=== PATIENT | female | born 1950 | race Caucasian/White ===

== ENCOUNTER → 2016-10-22 | Outpatient (CLI) | payer BC ==
[~2016-10-22] MED LIST: ASPEC81 PO; BIOTCAP2 PO; CONJ0.3T3 PO; DIPH30CA PO; GLUCTAB7 PO; HYDR-5688 PO; LEVO137T14 PO; LYCOPENE PO; MULTIVITAMIN PO; OMEG120013 PO; OXYSR10 PO
== END | disposition home or self-care (01) ==
LOC: C.LAB1850 13:47
PROVIDERS: ATTEND Family Medicine
DX: E03.9 Hypothyroidism, unspecified (principal)

== ENCOUNTER → 2016-11-18 | Outpatient (CLI) | payer BC ==
[2016-11-19 15:13] LABS: THYROID STIMULATING HORMONE 0.951 uIu/ml (0.300-4.500)
[2016-11-20 16:12] LABS: MICROSOMAL AB 1 IU/ML (<9)
== END | disposition home or self-care (01) ==
LOC: C.LAB1850 16:15
PROVIDERS: ATTEND Family Medicine
DX: E03.9 Hypothyroidism, unspecified (principal)

== ENCOUNTER → 2017-09-29 | Outpatient (CLI) | payer BC ==
[~2017-09-29] MED LIST changes: -ASPEC81 PO; +ASPI-320 PO
[2017-09-29 10:14] LABS: HEMOGLOBIN A1C 5.9 % (4.5-5.6)
[2017-09-29 10:27] LABS: ALT/SGPT 26 U/L (12-78); AST/SGOT 18 U/L (15-37); BLOOD UREA NITROGEN 16 mg/dl (7-18); CALCIUM 9.2 mg/dl (8.5-10.1); CARBON DIOXIDE 25 mmol/L (21-32); CREATININE 0.75 mg/dl (0.60-1.20); GLUCOSE 123 mg/dl (70-99); POTASSIUM 3.9 mmol/L (3.5-5.1); SODIUM 136 mmol/L (136-145)
[2017-09-29 10:38] LABS: ALKALINE PHOSPHATASE 62 U/L (45-117); CHOLESTEROL 191 mg/dl (0-200); LDL CHOLESTEROL CALCULATED 115 mg/dl; TOTAL PROTEIN 7.8 gm/dl (6.4-8.2)
== END | disposition home or self-care (01) ==
LOC: C.LAB1850 09:24
PROVIDERS: ATTEND Family Medicine
DX: E03.9 Hypothyroidism, unspecified (principal); E78.00 Pure hypercholesterolemia, unspecified; I10 Essential (primary) hypertension; R73.03 Prediabetes

== ENCOUNTER → 2017-11-26 | Outpatient (CLI) | payer BC ==
[~2017-11-26] MED LIST changes: +ASPEC81 PO; -ASPI-320 PO
--- NOTE | 2017-11-29 08:08 | MAMMOGRAPHY REPORT ---
BILATERAL DIGITAL SCREENING MAMMOGRAM TOMOSYNTHESIS WITH CAD: 11/26/2017 CLINICAL HISTORY: Routine screening. Patient has no complaints. TECHNIQUE: Breast tomosynthesis in addition to standard 2D mammography was performed. Current study was also evaluated with a Computer Aided Detection (CAD) system. COMPARISON: Comparison is made to exams dated: 07/16/2016 mammogram, 02/11/2015 mammogram, 09/28/2013 ultrasound, 09/28/2013 mammogram, 09/20/2013 mammogram - [facility], and 10/05/2007. BREAST COMPOSITION: There are scattered areas of fibroglandular density in both breasts. FINDINGS: There are nodular asymmetries in the posterior right breast along the posterior nipple line on the CC view and in the lateral, middle one third of the right breast, that are stable comparing b ack to the 09/20/2013 mammograms, and with at least 4 years of stability are considered benign. Ther e are scattered benign-appearing microcalcifications bilaterally. No suspicious mass, architectural distortion or cluster of suspicious microcalcifications is seen. IMPRESSION: ACR BI-RADS CATEGORY 1: NEGATIVE There is no mammographic evidence of malignancy. A 1 year screening mammogram is recommended. The pa tient will receive written notification of the results. Approximately 10% of breast cancers are not detected with mammography. A negative mammographic report should not delay biopsy if a clinically suggestive mass is present. Marlene Joyce M.D. ay/:11/26/2017 16:13:33 Livestock Slaughterer: Radha Lynn, [facility] letter sent: Normal 1/2 BI-RADS Code: ACR BI-RADS Category 1: Negative
== END | disposition home or self-care (01) ==
LOC: C.MAMM 14:07
PROVIDERS: ATTEND Family Medicine
DX: Z12.31 Encounter for screening mammogram for malignant neoplasm of breast (principal)

== ENCOUNTER → 2018-04-23 | Outpatient (CLI) | payer BC ==
[~2018-04-23] MED LIST changes: -ASPEC81 PO; +ASPI-320 PO
== END | disposition home or self-care (01) ==
LOC: C.LAB1850 09:21
PROVIDERS: ATTEND Family Medicine
DX: R53.83 Other fatigue (principal); W57.XXXA Bitten or stung by nonvenomous insect and other nonvenomous arthropods, initial encounter

== ENCOUNTER 2019-08-16 10:49 | Inpatient (IN) ==
--- NOTE | 2019-07-28 16:14 | PAT Medication Instructions ---
Medication Instructions Date of Service July 28, 2019 Home Medications Medication Instructions Recorded metoprolol tartrate 25 mg tablet 25 mg PO QAM #90 tab 05/27/19 nystatin 100,000 unit/gram topical 1 appln TOP BID PRN #30 gm 07/18/19 cream Allergy Sinus Headache (PE) 1 tab PO QAM PRN biotin 5,000 mcg PO QAM [id number] serr [Glucosamine Daily Complex] 1 tab PO QAM multivitamin 1 tab PO QAM metoprolol tartrate 25 mg tablet 25 mg PO QAM meloxicam 15 mg PO QAM diclofenac 1 % topical gel See Rx Instructions TOP QID PRN acetaminophen 500 mg capsule 500 mg PO Q6H PRN nystatin 100,000 unit/gram topical cream 1 appln TOP BID PRN omega 8-klk-mab-fish oil 1,000 mg (120 mg-180 mg) capsule 1 cap PO DAILY betamethasone dipropionate 1 appln TOP BID PRN levothyroxine 100 mcg PO QAM ASK your surgeon for instructions meloxicam 15 mg PO QAM STOP taking 2 weeks before surgery (or as soon as possible if surgery is within 2 weeks) biotin 5,000 mcg PO QAM [id number] serr [Glucosamine Daily Complex] 1 tab PO QAM omega 6-clu-rzv-fish oil 1,000 mg (120 mg-180 mg) capsule 1 cap PO DAILY STOP taking 24 hours before surgery diclofenac 1 % topical gel See Rx Instructions TOP QID PRN nystatin 100,000 unit/gram topical cream 1 appln TOP BID PRN betamethasone dipropionate 1 appln TOP BID PRN DO NOT take the morning of surgery Allergy Sinus Headache (PE) 1 tab PO QAM PRN multivitamin 1 tab PO QAM Take morning of surgery With a small sip of water, OTHERWISE NOTHING TO EAT OR DRINK AFTER MIDNIGHT: metoprolol tartrate 25 mg tablet 25 mg PO QAM acetaminophen 500 mg capsule 500 mg PO Q6H PRN (okay to take up to 4 hours prior to surgery if needed) levothyroxine 100 mcg PO QAM Other Notes If you have any questions please call us at [phone] or [phone] or [phone] or [phone]
--- NOTE | 2019-08-01 10:21 | Anesthesiology Consultation ---
Date of Service August 01, 2019 Assessment & Plan (1) Encounter for pre-operative examination: - Mechanical fall 06/03/19 resulted in hitting head/no loss of consciousness. Small subdural hematoma noted on head CT. + Scalp laceration. Patient transferred to [facility]. Repeat CT stable/GCS 15. Patient advised to not take ASA/fish oil until neurosurgery followup. No surgical intervention needed. Laceration repaired with 1 stable. - PCP: 07/18/19: "Will await PAT testing results before final clearance is given. Patient will also need clearance from neurosurgery due to recent subdural hematoma." - Awaiting review preop testing (labs, EKG, CXR). - Awaiting final PCP "clearance." - Awaiting neurosurgery preop evaluation scheduled 08/02 ([facility] neurosurgery). Chart Review Chart Review: Patient seen in Pre Admission Testing Teaching & Discussion Pre-Anesthesia Teaching/Discussion Notes: Instructed NPO after midnight before surgery,except medications with 15 cc of water. Medication instructions provided according to the PAT guidelines. History Surgery Operation Date: 08/16/19 14:55 Proposed Procedures p Left Total Hip Arthroplasty - Nader Mendoza MD Height/Weight Height: 5 ft 6 in Weight: 91.9 kg Allergies Allergy/AdvReac Type Severity Reaction Status Date / Time Penicillins Allergy Mild hives Verified 07/31/19 15:14 Sulfa (Sulfonamide Allergy Mild hives Verified 07/31/19 15:14 Antibiotics) Medications Home Medications Medication Instructions Recorded Confirmed Last Taken Allergy Sinus Headache (PE) 1 tab PO QAM PRN 06/24/18 07/31/19 Unknown biotin 5,000 mcg PO QAM 06/24/18 07/31/19 06/01/19 krfsosxjwjw-S8-Ofbjejydm serr 1 tab PO QAM 06/24/18 07/31/19 06/01/19 [Glucosamine Daily Complex] multivitamin 1 tab PO QAM 06/24/18 07/31/19 06/01/19 metoprolol tartrate 25 mg tablet 25 mg PO QAM #90 tab 05/27/19 07/31/19 06/01/19 meloxicam 15 mg PO QAM 06/02/19 07/31/19 06/01/19 diclofenac 1 % topical gel See Rx Instructions TOP QID PRN 07/16/19 07/31/19 Unknown acetaminophen 500 mg capsule 500 mg PO Q6H PRN 07/18/19 07/31/19 Unknown nystatin 100,000 unit/gram topical 1 appln TOP BID PRN #30 gm 07/18/19 07/31/19 Unknown cream omega 1-enf-bqt-fish oil 1,000 mg 1 cap PO DAILY 07/18/19 07/31/19 Unknown (120 mg-180 mg) capsule levothyroxine 100 mcg PO QAM 07/27/19 07/31/19 Unknown betamethasone dipropionate 0.05 % 1 appln TOP BID #45 gm 07/31/19 07/31/19 Unknown topical cream tacrolimus 0.03 % topical ointment 1 appln TOP BID #60 gm 07/31/19 07/31/19 Unknown Past Medical History Medical History Prediabetes per records Hypertension Hypothyroidism Obesity Osteoarthritis Subdural hematoma 06/03/19 s/p mechanical fall- no surgical intervention needed/neurosurgery followup 08/02 Exercise / Class Metabolic Activity II 4-5 Yardwork/Stairs/Walk up hill (one flight of stairs (no chest pain/no SOB)) Past Surgical History Surgical History H/O arthroscopy of left knee H/O arthroscopy of right knee H/O bilateral cataract extraction History of appendectomy History of bilateral tubal ligation History of carpal tunnel surgery of left wrist History of carpal tunnel surgery of right wrist History of cholecystectomy History of colonoscopy History of dilatation and curettage History of surgery RIGHT CLAVICLE FX SX X2 History of tooth extraction WISDOM TEETH History of total right knee replacement Status post left foot surgery Status post right foot surgery Past Anesthesia History No Hx of Anesthesia Complications and No Family Hx of Anesthesia Complications History of PONV No Hx of PONV and No Hx of Motion Sickness Social History Smoking Status: Former smoker tobacco type: cigarettes Do You Dip or Chew Tobacco: No Smoking End Date: Quit 1979 Hx Alcohol Use: Yes Alcohol type: beer, wine and hard liquor alcohol intake frequency: a few times a month Hx Substance Use: No substance use type: does not use Review of Systems Patient denies chest pain, shortness of breath, dyspnea on exertion, reflux, cough, wheezing, palpitations. Physical Exam Vital Signs VITALS BP 166/87 P 53 (asymptomatic/on beta jo) TEMP 98.1 SP02 97%RA RESP 16 PHYSICAL Full neck and c-spine range of motion. Full TMJ range of motion. TMD 3 finger breaths Mallampati Score 3 Dentition: intact, crown on side Lungs: clear throughout to auscultation Cardiac: regular rate and rhythm, no murmurs noted Spine: normal Carotid arteries: negative bruit Extremities: no edema Testing Other Testing Head CT: 06/03/19: Small acute subdural hematoma about the falx cerebri measures up to 3 mm. No midline shift, or hydrocephalus. Mild age-related involutional changes with suggestion of mild chronic microvascular ischemic disease.
[2019-08-01 11:17] LABS: Basophils # (auto) 0.04 K/uL (0-0.2); Basophils % (auto) 0.7 %; Eosinophils # (auto) 0.15 K/uL (0-0.5); Eosinophils % (auto) 2.8 %; Hematocrit (blood only) 39.2 % (37-47); Hemoglobin 13.1 g/dL (12.0-16.0); Lymphocytes # (auto) 1.64 K/uL (1.2-3.4); Lymphocytes % (auto) 30.6 %; Mean Corpuscular Hemoglobin 30.4 pg (25-34); Mean Corpuscular Hgb Conc 33.4 g/dL (32-36); Monocytes # (auto) 0.44 K/uL (0.11-0.59); Monocytes % (auto) 8.2 %; Neutrophils # (auto) 3.09 K/uL (1.4-6.5); Neutrophils % (auto) 57.7 %; Platelet Count 235 K/uL (130-400); RDW Coefficient of Variation 13.1 % (11.5-14.5); RDW Standard Deviation 43.9 fL (36.4-46.3); Red Blood Count 4.31 M/uL (4.2-5.4); White Blood Count 5.36 K/uL (4.8-10.8)
[2019-08-01 11:21] LABS: Appearance Urine Clear (Clear); Bacteria Urine Automated Negative (Negative); Bilirubin Urine Negative (Negative); Blood Urine Negative (Negative); Cast Urine Automated 0 /lpf (0-5); Color Urine Dark Yellow; Glucose Urine UA Negative (Negative); Ketones Urine Negative (Negative); Leukocyte Esterase Urine Trace (Negative); Nitrite Urine Negative (Negative); Protein Urine Negative (Negative); RBC Urine Automated 0-4 /hpf (0-4); Specific Gravity Urine 1.022 (1.000-1.030); Urobilinogen Urine Negative (Negative); pH Urine 5.5 (4.5-7.5)
[2019-08-01 11:23] LABS: Estimated Average Glucose 128 mg/dl; Hemoglobin A1C 6.1 % (4.5-5.6)
--- NOTE | 2019-08-01 11:28 | XRay Report ---
XR chest Pre-admission PA/Lat CLINICAL HISTORY: pat preoperative evaluation COMPARISON STUDY: 10/23/2015 FINDINGS: The bones soft tissues and hemidiaphragms are normal. The cardiomediastinal silhouette is n ormal. The lungs are clear. The pulmonary vasculature is normal. IMPRESSION: Negative chest. The above report was generated using voice recognition software. It may contain grammatical, syntax or spelling errors. Electronically signed by: Gorge Martinez M.D. 08/01/2019 11:27 AM
[2019-08-01 12:00] LABS: Partial Thromboplastin Ratio 0.8; Partial Thromboplastin Time 22.9 Seconds (21.0-31.0); Prothrombin Time 10.4 Seconds (9.0-12.0)
[2019-08-01 13:51] LABS: Albumin Level 4.2 gm/dl (3.4-5.0); BUN Creatinine Ratio 20.7 (10-20); Calcium 9.6 mg/dl (8.5-10.1); Creatinine Clr Calc Pharmacy 74.6 ml/min; Est GFR (African American) 87.3; Est GFR (Non-African American) 75.3; Potassium 4.6 mmol/L (3.5-5.1)
--- NOTE | 2019-08-15 20:32 | History and Physical Report ---
DATE OF ADMISSION: 08/16/2019 CHIEF COMPLAINT: Chronic left hip pain. HISTORY OF PRESENT ILLNESS: This is a 69-year-old female patient of Dr. Mendoza'alison complaining of chronic left hip pain, longstanding, now progressively getting worse. The patient has been diagnosed with end-stage osteoarthritis per clinical and radiographic exams. The patient has failed conservative treatment including anti-inflammatories, home exercise program and the use of a cane. The patient has increased pain with weightbearing activities and her pain does interfere with her activities of daily living. PAST MEDICAL HISTORY: Hypertension, hypothyroidism, rheumatoid arthritis, osteoarthritis and obesity. SOCIAL HISTORY: Nonsmoker and occasional drinker. REVIEW OF SYSTEMS: Chronic left hip pain. Otherwise, denies any shortness of breath, chest pain, nausea, vomiting or any other joint complaints. FAMILY HISTORY: Noncontributory. MEDICATIONS: 1. Levothyroxine 100 mcg daily. 2. Metoprolol 25 mg daily. 3. Multivitamins daily. 4. Equate 25 mg as needed. 5. Biotin 5000 mcg daily. 6. Glucosamine chondroitin daily. 7. Fish oil daily. 8. Voltaren 1% topical use as needed. 9. Nystatin cream 100,000 units as needed to affected area. 10. Betameth dip 0.05% two times daily to affected area. PAST SURGICAL HISTORY: Oral surgery, appendectomy, tubal ligation, left knee, left carpal tunnel, cholecystectomy, right clavicle, foot surgery, right knee arthroscopy and cataract surgery. ALLERGIES: PENICILLIN AND SULFA. PHYSICAL EXAMINATION: GENERAL: Well-developed, well-nourished, 69-year-old female, in no acute distress. She is alert and oriented x3 and pleasant. HEENT: Normocephalic and atraumatic. Extraocular motions are intact. Pupils are equal and reactive to light. HEART: Regular rate and rhythm. No murmurs. LUNGS: Clear. ABDOMEN: Soft and nontender. Bowel sounds present. EXTREMITIES: Left hip reveals pain with internal and external rotation passively. She does have a limp. She has no flexion contracture. She has 5/5 strength with pain. NEUROLOGIC: Neurovascularly, she is intact in her left lower extremity. DIAGNOSES: Left hip end-stage osteoarthritis, hypertension, hypothyroidism, rheumatoid arthritis and obesity. PLAN: The patient was advised of her diagnoses. Indications, risks, benefits and postoperative course have all been reviewed. The patient wished to proceed with a left total hip arthroplasty. Necessary consent forms, preoperative testing and clearances will be obtained.
[~2019-08-16 10:49] MED LIST changes: +ACETAMINOPHEN 500 MG TAB PO SCH; -ASPI-320 PO; -BIOTCAP2 PO; +BUPIVACAINE 0.5 % 5 MG/1 ML PF 10ML VIAL ONE; -CONJ0.3T3 PO; -DIPH30CA PO; +FAMOTIDINE 20 MG TAB PO SCH; +GABAPENTIN 300 MG CAP PO SCH; -GLUCTAB7 PO; -HYDR-5688 PO; -LEVO137T14 PO; +LR 500ML BOLUS, THEN 15ML/HR IV SCH; -LYCOPENE PO; -MULTIVITAMIN PO; -OMEG120013 PO; -OXYSR10 PO; +ROPIVACAINE 0.5% HCL/PF 150 MG, BUPIVACAINE 0.5% MPF 30 ML, EPINEPHrine 30MG/30ML (OR U... INSTIL SCH; +TRANEXAMIC ACID 1,000 MG **IV Intra-op IV SCH; +TRANEXAMIC ACID 1,000 MG **IV Pre-op IV SCH; +VANCOMYCIN HCL 1,500 MG in SODIUM CHLORIDE 0.9% 500 ML IV SCH; +dexAMETHasone 4 MG TAB PO SCH
--- NOTE | 2019-08-16 11:14 | History & Physical Bridge Note ---
Date of Service August 16, 2019 History & Physical Bridge Note I have examined the patient, reviewed the History & Physical and in the interval since the performance of the History & Physical I have noted the following changes of clinical significance: no changes noted
[2019-08-16] MEDS ORDERED: LIDOCAINE HCL 2% 2 ML VIAL/AMP(20MG/ML) INFIL ONE (11:15)
[2019-08-16] MEDS ORDERED: MIDAZOLAM HCL 1 MG/ML 2ML VIAL ONE ×2 (11:15→14:39)
[2019-08-16] MEDS ORDERED: PROPOFOL IV EMULSION 10 MG/ML 20 ML VIAL IV ONE ×3 (11:15→15:50)
[2019-08-16] MEDS ORDERED: fentaNYL citrate 100 MCG/2 ML VIAL ONE ×2 (11:16→16:28)
[2019-08-16] MEDS ORDERED: BACITRACIN INJ 50,000 UNIT VIAL ONE (12:54)
[2019-08-16] MEDS ORDERED: ORTHO JOINT ANESTHETIC ONE (12:54)
[2019-08-16] MEDS ORDERED: ePHEDrine sulfate 50 MG/ML SYR ONE (14:31)
--- NOTE | 2019-08-16 15:57 | Post Operative Brief Note ---
Immediate Post Op Note v1 Date of Surgery August 16, 2019 Pre & Post Diagnosis Operation Date: 08/16/19 13:50 Pre-Op Diagnosis: LEFT HIP OSTEOARTHRITIS Post-Op Diagnosis: LEFT HIP OSTEOARTHRITIS I identified the patient and participated in the time-out.: Yes Procedure Operation Date: 08/16/19 13:50 Actual Procedures p Left Total Hip Arthroplasty, Uncemented(Left) - Nader Mendoza MD Surgeon Nader Mendoza MD [employer] [place] Rikki MCCANN Estimated Blood Loss 175 Findings Consistent with Post-Op Diagnosis Specimens Femoral head Drains Hemovac Drain Anesthesia Type Spinal MAC Complications none Disposition Accompanied Patient To Recovery: No Disposition: Recovery Room Overlapping Procedure I was immediately available: during the entire case.
--- NOTE | 2019-08-16 16:24 | Operative Report ---
Post Operative Report Pre & Post Diagnosis Operation Date: 08/16/19 13:50 Pre-Op Diagnosis: LEFT HIP OSTEOARTHRITIS Post-Op Diagnosis: LEFT HIP OSTEOARTHRITIS I identified the patient and participated in the time-out.: Yes Procedure Operation Date: 08/16/19 13:50 Actual Procedures p Left Total Hip Arthroplasty, Uncemented(Left) - Nader Mendoza MD Surgeon Nader Mendoza MD [employer] Rikki MCCANN Estimated Blood Loss 175 Findings Consistent with Post-Op Diagnosis Specimens Femoral head Drains 2 Hemovac Anesthesia Type Spinal MAC Complications none Disposition Accompanied Patient To Recovery: No Disposition: Recovery Room Indications 69-year-old female with chronic progressive osteoarthritis in her left hip. Radiographs demonstrate joint space narrowing not quite [id number]-[id number] but has a protrusio type arthritic pattern with the femoral neck and acetabular osteophytes causing impingement. She has failed conservative management Description of Procedure Patient taken to the operating room and anesthetized under spinal anesthesia and sedation. Patient was placed supine on the operating table. Exam of the involved extremity demonstrated flexion to 115 degrees but no internal rotation and abduction limited to about 40degrees. There was moderate obesity but mostly abdominal.The patient was placed on a sacral pad and the involved leg was placed on a foot bump to flex knee 90 and hip 60. A Resendez-type approach was performed to the hip. A longitudinal lateral incision was made over the hip. The skin was incised sharply. The fat was divided down to the fascia. Subcutaneous bleeders are cauterized. Trochanteric bursa was resected. A split was made in the gluteus medius muscle between the anterior 40% and posterior 60%. The minimus was divided longitudinally reflected off the underlying capsule. The capsule was incised down to the hip joint. The capsule was very thickened and the hip was stiff consistent with some chronic capsulitis. An incision was made through the gluteus medius leaving a cuff of tendon for repair on the greater trochanter. The vastus lateralis was split longitudinally for about 3 cm. A muscular capsular flap was elevated off the hip. The hip was dislocated with use of bone hook and with flexion and external rotation of the hip. The femoral neck cut was made approximately 15 mm proximal to the lesser trochanter in neutral anteversion. Head and neck fragment were removed. The femoral head demonstrated grade 3 wear globally with articular thinning with large femoral neck osteophytes. A self-retaining superior tractor was impacted into the ilium, a blunt Tatyana retractor was placed anteriorly a double angled inferior retractor was placed on the ischium. The acetabulum demonstrated medial acetabular wear grade 4 with acetabular osteophytes superior anterior superior and inferior medial all contributing to impingement. The acetabular labrum was resected all osteophytes were resected.The soft tissue in the acetabular fossa was resected. An anterior capsular release was performed. Some the capsule was resected for exposure. The first reamer was used to medialize reaming to the inner table which was minimal amount due to already a protrusio type arthritic pattern and then sequential reamers for the acetabulum were used in 2 mm increments up to a size 52. Because of the rimming osteophytes a lightly reamed to 53 to allow full seating of the acetabular component.. I used the Betterfly total hip arthroplasty system using a PSL type cup. Trial reduction demonstrated a 52 millimeter cup was the appropriate size and fit. The placement of the final implant was performed after irrigating the acetabulum with antibiotic solution with pulsatile lavage. The position of the cup was approximately 15 anteversion 45 abduction. Good fixation was performed. Two 6.5 mm cancellus screws were placed in the posterior superior quadrant for further fixation through the cup. The acetabular liner was impacted into position. The Trident X3 polyethylene 10 degree 36 mm E acetabular liner was used.The Orthomix coctail injected into the capsule around the acetabular component and deeper muscles. The retractors removed and attention was taken to the femur. The femur was exposed with flexion external rotation. A Canal reamer was used followed by sequential tapered Accolade 2 broaches up to a size 4. This had a good fit and fill. Trial reduction was performed with a 132 neck angle based on preoperative templating. A -2.5 neck length gave equal leg lengths and stable range of motion through full flexion flexion adduction and internal rotation and extension and external rotation. The trials removed and after irrigation again and the final implant was impacted which was the Accolade 2 size 4 with 132 degree neck angle. The Biolox ceramic head size 36-2.5 was used. After final implants replaced the reduction was noted to be stable. Betadine soak was used per protocol. 2 drains were placed deep. These were brought out laterally and connected to Hemovac. The minimus was closed with interrupted [id number] #1 Vicryl sutures. The minimus was repaired to the greater trochanter with transosseous #5 FiberWire Alvin-Chris suture technique. The medius was closed with transosseous #5 FiberWire sutures using Alvin Chris suture technique. Lateral row soft tissue repair was performed with figure of 8 #2 FiberWire sutures. The medius split was closed with interrupted [id number]-[id number] #1 Vicryl sutures. The vastus lateralis was closed with interrupted figure of eight #1Vicryl sutures. The fascia marguerite was closed with interrupted figure of eight #1 Vicryl sutures. The fat was closed with mkvskk-[id number] #2 Vicryl sutures. Skin was closed with kaylen and sterile dressings were applied. The patient tolerated procedure well. Rikki MCCANN my physician assistant prosecuting attorney assisted me in the procedure with patient positioning And draping soft tissue retraction instrument management suture management and assisted in the outer layer closure and will participate in the postoperative care the patient. I attest to the content of the Intraoperative Record and any orders documented therein. Any exceptions are noted below.
[2019-08-16] MEDS ORDERED: ePHEDrine sulfate 50 MG/ML AMP IV PRN (16:26)
[2019-08-16] MEDS ORDERED: ONDANSETRON INJ 2 MG/ML 2 ML VIAL IV PRN (16:26)
[2019-08-16] MEDS ORDERED: ATROPINE SULFATE 0.1 MG/ML 10ML SYR IV PRN (16:26)
[2019-08-16] MEDS: fentaNYL citrate 100 MCG/2 ML VIAL IV PRN ×3 (16:32→17:32)
[2019-08-16] MEDS ORDERED: HYDROmorphone INJ 1 MG/ML SYRINGE ONE (16:33)
[2019-08-16] MEDS: HYDROmorphone INJ 1 MG/ML SYRINGE IV PRN ×8 (16:35→17:27)
--- NOTE | 2019-08-16 16:57 | XRay Report ---
XR hip 1V LT w pelvis HISTORY: 69 years-old Female IN PACU - A/P PELVIS and LATERAL HIP left hip total joint arthroplasty . COMPARISON: Pelvis and left hip radiographs 06/02/2019 TECHNIQUE: AP view of the pelvis with crosstable lateral view of the left hip FINDINGS: Left hip total joint arthroplasty demonstrates satisfactory alignment. No acute fracture or opaque fo reign body identified. Lateral skin kaylen are noted along with expected postsurgical soft tissue sw elling and deep tissue air with surgical drainage catheter. Mild to moderate right hip osteoarthritis . IMPRESSION: Satisfactory positioning of the left hip total joint arthroplasty. The above report was generated using voice recognition software. It may contain grammatical, syntax o r spelling errors. Electronically signed by: Yoandy Lloyd M.D. 08/16/2019 4:56 PM
--- NOTE | 2019-08-16 17:30 | Anesthesiology Progress Note ---
Date of Service August 16, 2019 Anesthesia Post Procedure Vital Signs Vital Signs: Temp Pulse Pulse Resp BP Pulse Ox 08/16/19 17:20 78 18 164/93 H 99 08/16/19 17:10 82 17 156/78 H 95 08/16/19 17:00 79 17 164/73 H 98 08/16/19 16:50 79 22 155/79 H 95 08/16/19 16:40 79 12 174/101 H 97 08/16/19 16:30 82 12 186/94 H 95 08/16/19 16:22 36.4 C L 84 15 147/102 H 99 08/16/19 12:00 36.6 C 62 20 141/69 H 97 Pain Intensity Left Hip: Pain Intensity: 4 Transfer of Care Handoff Completed per policy Notes Mental Status: alert / awake / arousable and participated in evaluation Patient Amnestic to Procedure: Yes Nausea / Vomiting: adequately controlled Pain: adequately controlled Airway Patency, RR, SpO2: stable & adequate BP & HR: stable & adequate Hydration State: stable & adequate Neuraxial Anesthesia: was administered and sensory block is resolving Anesthetic Complications: no major complications apparent and Pt Satisfied with anesthetic care
[2019-08-16] MEDS ORDERED: VANCOMYCIN CONSULT ACTIVE PRN (18:17)
[2019-08-16] MEDS ORDERED: MAGNESIUM HYDROXIDE SUSP 30 ML UDC PO PRN (18:17)
[2019-08-16] MEDS ORDERED: SODIUM CHLORIDE 0.9% 1000ML 1,000 ML IV SCH (18:17)
[2019-08-16] MEDS ORDERED: BISACODYL 10 MG SUPP PR PRN (18:17)
[2019-08-16] MEDS ORDERED: NALOXONE HCL 0.4 MG/1 ML VIAL/CARP IV PRN (18:17)
[2019-08-16] MEDS ORDERED: METOCLOPRAMIDE HCL INJ 5 MG/ML 2 ML VIAL IV PRN (18:17)
[2019-08-16] MEDS: FERROUS GLUCONATE 324 MG TAB PO SCH (19:17)
[2019-08-16] MEDS: ASPIRIN 81 MG ECTAB PO SCH (20:20)
[2019-08-16] MEDS: SENNA 8.6 MG TAB PO SCH (20:20)
[2019-08-16] MEDS: DOCUSATE SODIUM 100 MG CAP PO SCH (20:21)
[2019-08-16] MEDS: ACETAMINOPHEN 500 MG TAB PO SCH (21:55)
[2019-08-16] MEDS ORDERED: VANCOMYCIN HCL 1,250 MG in SODIUM CHLORIDE 0.9% 250 ML IV SCH (23:00)
[2019-08-17] MEDS: OXYCODONE HCL IR 5 MG TAB (IMMEDIATE RELEASE) PO PRN ×4 (01:03→18:19)
[2019-08-17] MEDS: HYDROmorphone INJ 0.5 MG/0.5 ML SYR IV PRN (03:39)
[2019-08-17 06:01] LABS: Basophils # (auto) 0.01 K/uL (0-0.2); Basophils % (auto) 0.1 %; Hematocrit (blood only) 33.3 % (37-47); Hemoglobin 11.3 g/dL (12.0-16.0); Immature Granulocytes # (auto) 0.02 K/uL (0.00-0.02); Immature Granulocytes % (auto) 0.2 %; Lymphocytes % (auto) 7.6 %; Mean Corpuscular Hemoglobin 30.6 pg (25-34); Mean Corpuscular Volume 90.2 fL (80-100); Mean Platelet Volume 9.4 fL (7.4-10.4); Monocytes # (auto) 1.09 K/uL (0.11-0.59); Monocytes % (auto) 9.2 %; Neutrophils # (auto) 9.89 K/uL (1.4-6.5); Neutrophils % (auto) 82.9 %; Platelet Count 194 K/uL (130-400); RDW Standard Deviation 42.7 fL (36.4-46.3); Red Blood Count 3.69 M/uL (4.2-5.4); White Blood Count 11.91 K/uL (4.8-10.8)
[2019-08-17 06:07] LABS: Mean Corpuscular Hgb Conc 33.9 g/dL (32-36)
[2019-08-17] MEDS: LEVOTHYROXINE SODIUM 100 MCG TABLET PO SCH (06:11)
[2019-08-17] MEDS: ACETAMINOPHEN 500 MG TAB PO SCH ×3 (06:11→22:03)
[2019-08-17 06:23] LABS: BUN Creatinine Ratio 25.8 (10-20); Calcium 9.1 mg/dl (8.5-10.1); Est GFR (African American) 75.6; Est GFR (Non-African American) 65.2; Potassium 4.5 mmol/L (3.5-5.1)
--- NOTE | 2019-08-17 08:20 | Anesthesiology Progress Note ---
Date of Service August 17, 2019 Anesthesia Post Procedure Vital Signs Vital Signs: Temp Pulse Pulse Pulse Resp BP Pulse Ox 08/17/19 07:04 36.5 C 72 16 123/64 97 08/17/19 03:43 36.5 C 72 16 136/73 95 08/17/19 00:12 96 08/16/19 23:40 36.7 C 79 16 130/74 98 08/16/19 21:15 36.5 C 80 17 136/85 98 08/16/19 20:24 36.2 C L 88 20 124/81 96 08/16/19 19:15 36.6 C 81 17 148/81 H 96 08/16/19 18:45 36.4 C L 78 17 147/83 H 98 08/16/19 18:17 36.4 C L 82 17 176/78 H 94 08/16/19 17:55 80 14 129/78 95 08/16/19 17:40 36.9 C 76 24 120/83 97 08/16/19 17:30 67 15 122/78 95 08/16/19 17:20 78 18 164/93 H 99 08/16/19 17:10 82 17 156/78 H 95 08/16/19 17:00 79 17 164/73 H 98 08/16/19 16:50 79 22 155/79 H 95 08/16/19 16:40 79 12 174/101 H 97 08/16/19 16:30 82 12 186/94 H 95 08/16/19 16:22 36.4 C L 84 15 147/102 H 99 08/16/19 12:00 36.6 C 62 20 141/69 H 97 Pain Intensity Left Hip: Pain Intensity: 4 Notes Mental Status: alert / awake / arousable and participated in evaluation Patient Amnestic to Procedure: Yes Nausea / Vomiting: adequately controlled Pain: adequately controlled Airway Patency, RR, SpO2: stable & adequate BP & HR: stable & adequate Hydration State: stable & adequate Neuraxial Anesthesia: was administered and sensory block resolved Anesthetic Complications: no major complications apparent and Pt Satisfied with anesthetic care
[2019-08-17] MEDS: FERROUS GLUCONATE 324 MG TAB PO SCH ×2 (08:46→18:19)
[2019-08-17] MEDS: ASPIRIN 81 MG ECTAB PO SCH ×2 (08:46→22:04)
[2019-08-17] MEDS: METOPROLOL TARTRATE 25 MG TAB PO SCH (08:46)
[2019-08-17] MEDS: PSYLLIUM 58.6% POWDER PACKET PO SCH (08:47)
[2019-08-17] MEDS: MULTIVITAMIN TAB PO SCH (08:47)
[2019-08-17] MEDS: DOCUSATE SODIUM 100 MG CAP PO SCH ×2 (08:47→22:04)
--- NOTE | 2019-08-17 08:47 | Hospitalist Consultation ---
Date of Consultation August 17, 2019 Assessment & Plan (1) Status post total hip replacement, left: - Doing well postoperatively; planning on D/C to SNF - Pain management, DVT prophylaxis, PT/OT, surgical management per primary - DVT - ASA 81 mg BID Patient is hemodynamically stable. Chronic conditions stable. Recommend to continue previously prescribed medications on discharge. Hospitalist service will sign off at this time but please do not hesitate to contact us for any questions. Present on Admission?: Yes (2) Hypertension: - Occ high readings but likely multifactorial between pain/stress - la rgely stable - Continue Lopressor 25 mg daily Present on Admission?: Yes (3) Hypothyroidism: - Levothyroxine 100 mcg daily Present on Admission?: Yes Supervising Physician Co-Signing Physician Notes Patient seen and examined with Marya MCCANN. I agree with her exam findings, review of systems, assessment and plan. I personally reviewed the lab work and imaging as well. Patient feeling well, pain in hip is well controlled, she ambulated in the hallway. Eating well, no dyspnea. Labs are reviewed, mild leukocytosis, Hb stable, BUN, Cr and electrolytes stable. - HTN: BP stable, continue home meds - s/p SHIRLEY: pain control, DVT prophylaxis, d/c planning per ortho, can go to [facility] tomorrow if approved medicine will sign off History of Present Illness Reason for Consultation: Medical Management Attending Physician: Nader Mendoza MD History of Present Illness Ms. Gaytan is a 69 y/o female with PMHx of HTN, Hypothyroidism, RA/OA, and Recent Subdural Hematoma (May 2019) S/P Mechanical Fall who is S/P L SHIRLEY on 08/16. Hospitalist service consulted for medical management. She reports feeling well today. Some knee stiffness which is chronic but otherwise pain is controlled. Anticipating rehab on D/C as she does live alone. She was medically cleared by her neurosurgeon after he subdural and has no longstanding neurological deficits. She does have occ. higher BP readings but largely controlled. She denies H/O cardiac disease or DVT/PE. Allergies Allergy/AdvReac Type Severity Reaction Status Date / Time Penicillins Allergy Mild hives Verified 08/16/19 11:32 Sulfa (Sulfonamide Allergy Mild hives Verified 08/16/19 11:32 Antibiotics) Home Medications Home Medications Medication Instructions Recorded Confirmed Type biotin 5,000 mcg PO QAM 06/24/18 08/16/19 History [id number] serr 1 tab PO QAM 06/24/18 08/16/19 History [Glucosamine Daily Complex] multivitamin 1 tab PO QAM 06/24/18 08/16/19 History metoprolol tartrate 25 mg tablet 25 mg PO QAM #90 tab 05/27/19 08/16/19 Rx meloxicam 15 mg PO QAM 06/02/19 08/16/19 History diclofenac sodium 1 % topical gel See Rx Instructions TOP QID PRN 07/16/19 08/16/19 History acetaminophen 500 mg capsule 500 mg PO Q6H PRN 07/18/19 08/16/19 History nystatin 100,000 unit/gram topical 1 appln TOP BID PRN #30 gm 07/18/19 08/16/19 Rx cream omega 6-pes-okt-fish oil 1,000 mg 1 cap PO DAILY 07/18/19 08/16/19 History (120 mg-180 mg) capsule levothyroxine 100 mcg PO QAM 07/27/19 08/16/19 History betamethasone dipropionate 0.05 % 1 appln TOP BID #45 gm 07/31/19 08/16/19 Rx topical cream tacrolimus 0.03 % topical ointment 1 appln TOP BID #60 gm 07/31/19 08/16/19 Rx psyllium husk [Metamucil] 1 tbsp PO DAILY 08/16/19 08/16/19 History Patient History Medical History Hypertension Hypothyroidism Obesity Osteoarthritis Prediabetes per records Subdural hematoma 06/03/19 s/p mechanical fall- no surgical intervention needed/neurosurgery followup 08/02 Surgical History H/O arthroscopy of left knee H/O arthroscopy of right knee H/O bilateral cataract extraction History of appendectomy History of bilateral tubal ligation History of carpal tunnel surgery of left wrist History of carpal tunnel surgery of right wrist History of cholecystectomy History of colonoscopy History of dilatation and curettage History of surgery RIGHT CLAVICLE FX SX X2 History of tooth extraction WISDOM TEETH History of total right knee replacement Status post left foot surgery Status post right foot surgery Family History (Updated 08/17/19 @ 08:46 by Marya Melissa PA-C) Other Family history non-contributory Social History Preferred Language: Vincentian Communication Ability: Effective Chain Mender Required: No Beliefs That Will Affect Care: None Current Living Situation: Alone Other Information That Helps Us Care for You: No Feels Safe at Home: Yes Safety Concerns: Feels Safe At This Time Smoking Status: Former smoker Tobacco Type: cigarettes ; Do You Dip or Chew Tobacco: No ; Smoking End Date: Quit 1979 ; Second Hand Exposure: No ; Tobacco Cessation Education Requested by Patient: No Hx Alcohol Use: Yes Alcohol type: beer, wine and hard liquor Hx Substance Use: No Review of Systems Constitutional: no fever and no chills Eyes: no worsening vision Ear, Nose, Mouth, Throat: no nasal congestion and no sore throat Respiratory: no cough and no dyspnea Cardiovascular: no chest pain, no palpitations and no edema Gastrointestinal: no abdominal pain, no nausea, no vomiting, no constipation and no diarrhea/loose stools Genitourinary: no dysuria Musculoskeletal: + joint pain (L hip - controlled) and + stiffness Integumentary: no rash Neurologic: no tingling and no numbness Physical Exam Constitutional: WD/WN, vitals as above Eyes: + anicteric sclerae ENMT: Ears: no hearing impairment Neck: trachea midline Respiratory: normal respiratory effort, lungs clear to auscultation Cardiovascular: RRR, no murmur, no edema Gastrointestinal (Abdomen): Inspection/Auscultation: normal bowel sounds Percussion/Palpation: abdomen soft; abdomen nontender Musculoskeletal: Head/Neck/Chest: normocephalic and head atraumatic Extremities: no cyanosis Skin: no rashes, warm and dry Neurologic: moves all extremities Psychiatric: A+Ox3, euthymic affect Results & Data Vital Signs (Past 12 Hours) Vital Signs Temp Pulse Pulse Resp BP Pulse Ox 08/17/19 07:04 36.5 C 72 16 123/64 97 08/17/19 03:43 36.5 C 72 16 136/73 95 08/17/19 00:12 96 08/16/19 23:40 36.7 C 79 16 130/74 98 08/16/19 21:15 36.5 C 80 17 136/85 98 PG Care Time/CCT Total # of Minutes Spent Total Time Spent with Patient: Total time spent is greater than 50% in coordination of care (as documented) at patient's floor/unit and/or counseling patient:
--- NOTE | 2019-08-17 10:20 | Orthopedic Progress Note ---
Date of Service August 17, 2019 Assessment & Plan (1) Status post total hip replacement, left: POD #1, Left SHIRLEY. PT/ OT. DVT proph- ASA. D/C planning- Wishes for [facility]. Appreciate medicine input. Subjective POD #1, Doing well. Denies SOB, CP, N/V. Pain controlled well. Wishes for [facility] at discharge. Physical Exam Physical Exam: Left hip silverlon dressing c/d/i. Drain in tact. Toes/ ankle mobile. No calf tenderness A&Ox3. Results & Data Vital Signs (Past 12 Hours) Vital Signs Temp Pulse Pulse Resp BP Pulse Ox 08/17/19 07:04 36.5 C 72 16 123/64 97 08/17/19 03:43 36.5 C 72 16 136/73 95 08/17/19 00:12 96 08/16/19 23:40 36.7 C 79 16 130/74 98
[2019-08-17] MEDS: SENNA 8.6 MG TAB PO SCH (22:04)
[2019-08-18] MEDS: OXYCODONE HCL IR 5 MG TAB (IMMEDIATE RELEASE) PO PRN ×3 (00:32→13:46)
[2019-08-18] MEDS: HYDROmorphone INJ 0.5 MG/0.5 ML SYR IV PRN (04:07)
[2019-08-18] MEDS: ACETAMINOPHEN 500 MG TAB PO SCH ×3 (05:59→21:15)
[2019-08-18] MEDS: LEVOTHYROXINE SODIUM 100 MCG TABLET PO SCH (05:59)
[2019-08-18] MEDS: DOCUSATE SODIUM 100 MG CAP PO SCH ×2 (07:46→21:16)
[2019-08-18] MEDS: METOPROLOL TARTRATE 25 MG TAB PO SCH (07:46)
[2019-08-18] MEDS: ASPIRIN 81 MG ECTAB PO SCH ×2 (07:46→21:15)
[2019-08-18] MEDS: PSYLLIUM 58.6% POWDER PACKET PO SCH (07:46)
[2019-08-18] MEDS: FERROUS GLUCONATE 324 MG TAB PO SCH ×2 (07:46→17:46)
[2019-08-18] MEDS: MULTIVITAMIN TAB PO SCH (07:47)
--- NOTE | 2019-08-18 08:34 | Orthopedic Progress Note ---
Date of Service August 18, 2019 Assessment & Plan (1) Status post total hip replacement, left: POD #2, Left SHIRLEY. PT/ OT. DVT proph- ASA. D/C planning- Wishes for [facility] or [facility], as per SS and authorization. Appreciate medicine input. Subjective POD #2, Doing well. Denies SOB, CP, N/V. Pain controlled well. Wishes for [facility] or [facility] at discharge. Physical Exam Physical Exam: Left hip silverlon c/d/i, no drainage. No erythema. Toes/ ankle mobile. No calf tenderness. A&Ox3. Results & Data Vital Signs (Past 12 Hours) Vital Signs Temp Pulse Pulse Resp BP Pulse Ox 08/18/19 06:08 36.9 C 85 18 156/75 H 97 08/18/19 04:46 76 158/68 H 08/18/19 04:03 36.9 C 169/73 H 08/18/19 00:12 163/77 H 08/17/19 23:21 36.8 C 79 18 175/75 H 100
[2019-08-18] MEDS: ONDANSETRON INJ 2 MG/ML 2 ML VIAL IV PRN (15:33)
[2019-08-18] MEDS: SENNA 8.6 MG TAB PO SCH (21:16)
[2019-08-19] MEDS: LEVOTHYROXINE SODIUM 100 MCG TABLET PO SCH (05:32)
[2019-08-19] MEDS: ACETAMINOPHEN 500 MG TAB PO SCH ×3 (05:32→21:37)
[2019-08-19] MEDS: PSYLLIUM 58.6% POWDER PACKET PO SCH (08:31)
[2019-08-19] MEDS: MULTIVITAMIN TAB PO SCH (08:31)
[2019-08-19] MEDS: DOCUSATE SODIUM 100 MG CAP PO SCH ×2 (08:31→21:37)
[2019-08-19] MEDS: ASPIRIN 81 MG ECTAB PO SCH ×2 (08:31→21:37)
[2019-08-19] MEDS: METOPROLOL TARTRATE 25 MG TAB PO SCH (08:31)
[2019-08-19] MEDS: FERROUS GLUCONATE 324 MG TAB PO SCH ×2 (08:31→17:34)
[2019-08-19] MEDS: OXYCODONE HCL IR 5 MG TAB (IMMEDIATE RELEASE) PO PRN ×3 (08:35→21:36)
--- NOTE | 2019-08-19 08:50 | Orthopedic Progress Note ---
Date of Service August 19, 2019 Assessment & Plan (1) Status post total hip replacement, left: POD #3, Left SHIRLEY. PT/ OT. DVT proph- ASA. D/C planning- [facility] today if insurance authorization is given today. Appreciate medicine input. Subjective POD #3, Doing well. Denies SOB, CP, N/V. Pain controlled well. Wishes for [facility] at discharge. Physical Exam Constitutional: WD/WN, vitals as above well developed and well nourished; no acute distress Musculoskeletal: Gait: + antalgic gait (left side with walker) Hip: + surgical incision (left hip Silverlon dressing in place. ); no deformity (left hip is located), no skin erythema, no ecchymosis and no crepitation with hip ROM (left hip) Neurologic: normal touch/pain/proprioception Psychiatric: A+Ox3, euthymic affect Speech: normal rate/rhythm/volume of speech Sitting comfortably in bed side chair. Results & Data Vital Signs (Past 12 Hours) Vital Signs Temp Pulse Pulse Resp BP Pulse Ox 08/19/19 07:59 36.7 C 94 H 20 157/75 H 95 08/18/19 23:01 36.8 C 91 H 18 153/75 H 95
[2019-08-19] MEDS: SENNA 8.6 MG TAB PO SCH (21:38)
[2019-08-20] MEDS: LEVOTHYROXINE SODIUM 100 MCG TABLET PO SCH (06:22)
[2019-08-20] MEDS: ACETAMINOPHEN 500 MG TAB PO SCH ×4 (06:22→20:45)
--- NOTE | 2019-08-20 07:45 | Orthopedic Progress Note ---
Date of Service August 20, 2019 Assessment & Plan (1) Status post total hip replacement, left: POD #4, Left SHIRLEY. PT/ OT. DVT proph- ASA. D/C planning- [facility] if approved. Still awaiting insurance authorization which won't happen today (Wednesday). Will attempt for authorization tomorrow. Discussed home with home health today if she felt comfortable leaving vs. awaiting approval or denial tomorrow before changing to home with home health. She wants to wait until tomorrow. Appreciate medicine input. Subjective POD #4, Doing well. Denies SOB, CP, N/V. Pain controlled well. Wishes for [facility] at discharge. States she is unable to get herself dressed at this point post op. She has steps at home and lives alone. She is concerned of going home with home health. Would feel more comfortable if she had a SNF stay. Would like to wait for possible approval. Physical Exam Constitutional: WD/WN, vitals as above well developed and well nourished; no acute distress Musculoskeletal: Gait: + antalgic gait (left side with walker) Hip: + surgical incision (left hip Silverlon dressing in place. ); no deformity (left hip is located), no skin erythema, no ecchymosis and no crepitation with hip ROM (left hip) Neurologic: normal touch/pain/proprioception Psychiatric: A+Ox3, euthymic affect Speech: normal rate/rhythm/volume of speech Results & Data Vital Signs (Past 12 Hours) Vital Signs Temp Pulse Pulse Resp BP Pulse Ox 08/20/19 07:00 36.8 C 95 H 18 153/88 H 95 08/19/19 22:57 36.6 C 82 18 122/73 94
[2019-08-20] MEDS: FERROUS GLUCONATE 324 MG TAB PO SCH ×2 (08:33→17:46)
[2019-08-20] MEDS: ASPIRIN 81 MG ECTAB PO SCH ×2 (08:33→19:59)
[2019-08-20] MEDS: DOCUSATE SODIUM 100 MG CAP PO SCH ×2 (08:33→19:58)
[2019-08-20] MEDS: MULTIVITAMIN TAB PO SCH (08:33)
[2019-08-20] MEDS: METOPROLOL TARTRATE 25 MG TAB PO SCH (08:33)
[2019-08-20] MEDS: PSYLLIUM 58.6% POWDER PACKET PO SCH (08:34)
[2019-08-20] MEDS: OXYCODONE HCL IR 5 MG TAB (IMMEDIATE RELEASE) PO PRN (12:54)
[2019-08-20] MEDS: SENNA 8.6 MG TAB PO SCH (19:59)
[2019-08-21] MEDS: LEVOTHYROXINE SODIUM 100 MCG TABLET PO SCH (06:19)
[2019-08-21] MEDS: ACETAMINOPHEN 500 MG TAB PO SCH ×2 (06:20→13:45)
[2019-08-21] MEDS: OXYCODONE HCL IR 5 MG TAB (IMMEDIATE RELEASE) PO PRN (07:30)
[2019-08-21] MEDS: METOPROLOL TARTRATE 25 MG TAB PO SCH (07:33)
[2019-08-21] MEDS: MULTIVITAMIN TAB PO SCH (07:33)
[2019-08-21] MEDS: FERROUS GLUCONATE 324 MG TAB PO SCH (07:34)
[2019-08-21] MEDS: PSYLLIUM 58.6% POWDER PACKET PO SCH (07:34)
[2019-08-21] MEDS: ASPIRIN 81 MG ECTAB PO SCH (07:34)
[2019-08-21] MEDS: DOCUSATE SODIUM 100 MG CAP PO SCH (07:34)
[2019-08-21] MEDS: ONDANSETRON INJ 2 MG/ML 2 ML VIAL IV PRN (07:53)
--- NOTE | 2019-08-21 10:02 | Orthopedic Progress Note ---
Date of Service August 21, 2019 Assessment & Plan (1) Status post total hip replacement, left: POD #5, Left SHIRLEY. PT/ OT. DVT proph- ASA. D/C planning- Peer to peer done this AM and again denied SNF facilities. Patient will have HH vs Outpatient PT that comes to her home ([facility]). Will discuss w SS Plan for D/C this afternoon. Appreciate medicine input. Subjective POD #5, Doing well. Denies SOB, CP, N/V. Pain controlled well. Physical Exam Physical Exam: Left hip silverlon c/d/i, no drainage. Toes/ ankle mobile. No calf tenderness. A&Ox3. Results & Data Vital Signs (Past 12 Hours) Vital Signs Temp Pulse Resp BP BP Pulse Ox 08/21/19 06:50 165/79 H 08/21/19 06:35 36.8 C 95 H 17 173/82 H 94 08/20/19 23:37 36.9 C 93 H 18 151/76 H 96
--- NOTE | 2019-08-24 21:32 | Discharge Summary ---
DISCHARGE DIAGNOSIS: Left hip osteoarthritis. SECONDARY DIAGNOSES: Hypertension, hypothyroidism, obesity, osteoarthritis, prediabetes, history of subdural hematoma after a mechanical fall. CONSULTS: Marya Melissa PA-C/Ap Fernando DO BRIEF HISTORY: As dictated in the history and physical. HOSPITAL SUMMARY: The patient was admitted on the above-noted date and had the above-noted surgery performed, which she tolerated well. On her first postoperative day, she was doing well without complaints. She denied shortness of breath, chest pain, nausea, vomiting. Pain was controlled. She was hoping for [facility] at discharge. Silverlon dressing was intact. Drain was functioning. Toes were mobile. No calf tenderness. Vital signs were stable and she was afebrile. She was started on physical therapy protocol, continued on DVT prophylaxis and pain management. By her second postoperative day, she was doing well and continued to remain stable. Plans were for [facility] depending on which was authorized. Dressings remained stable. Neurovascular was intact and vital signs were stable. She had a slight decrease in her systolic blood pressure of 157. The patient remains hospitalized and awaiting for authorization over the weekend for either [facility] or a skilled facility. She had been denied a skilled facility and a [id number] was done that morning by Gorge David PA-C and/or Dr. Mendoza which again skilled facility was denied. The patient was planning either outpatient versus home health therapy, and after discussing with case management, she chose outpatient PT. She was otherwise remaining stable. Vital signs were stable. She was afebrile, blood pressure was 134/76 and it was felt she could be discharged to home on 08/21/2019. For further review, please see chart. LABORATORY AND X-RAY DATA: As per chart. DISCHARGE INSTRUCTIONS: The patient was discharged to home in satisfactory condition on 08/21/2019. Diet: Diabetic. Activity: Follow the total hip replacement instructions and special care instructions as noted. Follow up with Dr. Mendoza in 2 weeks. The patient is to call for appointment if one has not been made for you. DISCHARGE MEDICATIONS: Acetaminophen 1000 mg p.o. q. 8 hours, aspirin 81 mg p.o. b.i.d., Colace 100 mg p.o. b.i.d., oxycodone 5 mg p.o. q. 4 hours p.r.n. Resume home meds as listed. Stop taking previous acetaminophen, Voltaren and meloxicam.
== END 2019-08-21 15:35 | disposition home health service (06) | DRG 470 ==
LOC: ASU 10:49 → 3E 16:34